=== PATIENT | male | born 1990 | race Caucasian/White ===

== ENCOUNTER 2020-05-21 19:15 | Emergency (ER) | payer OTHER ==
[2020-05-21 19:32] VITALS: BP 122/77; PULSE 83; TEMP 98.5; BMI 23.6
== END 2020-05-21 21:21 | disposition home or self-care (01) ==
LOC: JER 19:15
DX: S09.90XA Unspecified injury of head, initial encounter (principal); W22.8XXA Striking against or struck by other objects, initial encounter
CPT/HCPCS: 70450-TC; 99284-25